=== PATIENT | female | born 1990 | race Caucasian/White ===

== ENCOUNTER → 2019-12-19 16:04 | Outpatient (BNVA) | payer OTHER, SELFPAY | PROVIDERS: Family Provider Nurse Practitioner; PCP Nurse Practitioner; Visit Provider Nurse Practitioner | DX: E04.9 Nontoxic goiter, unspecified (principal) | CPT/HCPCS: 84439; 84443; 84481 ==

== ENCOUNTER 2020-01-03 12:16 | Outpatient (CLI) | payer OTHER, SELFPAY ==
--- NOTE | 2020-01-03 12:45 | US_ITS ---
WS: [id number] THYROID ULTRASOUND REASON FOR EXAM: enlarged thyroid TECHNIQUE: Grayscale and Doppler ultrasound examination of the thyroid gland. FINDINGS: RIGHT: Right thyroid gland measures 4.9 cm x 1.8 cm x 1.8 cm. Right thyroid volume equals 8.3 ccm3. Heteroge neous echotexture with enlarged gland and increased vascularity. LEFT: Left thyroid gland measures 4.5 cm x 1.8 cm x 1.6 cm. Left thyroid volume equals 6.6 ccm3. Heterogene ous gland highly vascular and enlarged. Superior to the left lobe of the thyroid is a 2.43 x 0.29 x 0 .68 enlarged lymph node. Thyroid isthmus: 0.2 mm. US/US thyroid [id number] IMPRESSION: Enlarged thyroid gland suggesting hyperthyroidism. There appears to be a lymph node enlarged and superior to the left lobe.
== END 2020-01-03 12:17 | disposition home or self-care (01) ==
PROVIDERS: PCP Nurse Practitioner; Visit Provider Nurse Practitioner
DX: E04.9 Nontoxic goiter, unspecified (principal)
CPT/HCPCS: 76536

== ENCOUNTER 2020-01-04 11:21 | Outpatient (CLI) | payer OTHER, SELFPAY ==
[2020-01-08 06:53] LABS: Thyroglobulin AB 2 IU/mL (< or = 1)
== END 2020-01-04 11:22 | disposition home or self-care (01) ==
LOC: LAB 11:25
PROVIDERS: PCP Nurse Practitioner; Visit Provider Nurse Practitioner
DX: E04.9 Nontoxic goiter, unspecified (principal); E05.90 Thyrotoxicosis, unspecified without thyrotoxic crisis or storm
CPT/HCPCS: 36415; 83516; 84445; 86800

== ENCOUNTER 2020-03-07 13:12 | Outpatient (CLI) | payer OTHER, SELFPAY ==
[2020-03-07 14:05] LABS: Free T4 Free Thyroxine 1.01 ng/dL (0.82-1.77); Thyroid Stimulating Hormone 0.01 uIU/mL (0.27-4.20)
== END 2020-03-07 13:13 | disposition home or self-care (01) ==
LOC: LAB 13:16
PROVIDERS: PCP Nurse Practitioner; Visit Provider Nurse Practitioner
DX: E05.90 Thyrotoxicosis, unspecified without thyrotoxic crisis or storm (principal)
CPT/HCPCS: 36415; 84439; 84443; 84481

== ENCOUNTER 2020-07-02 18:30 | Outpatient (CLI) | payer OTHER, SELFPAY ==
[2020-07-04 09:18] LABS: T4 Total 9.5 mcg/dL (5.1-11.9)
== END 2020-07-02 18:31 | disposition home or self-care (01) ==
LOC: LAB 18:33
PROVIDERS: PCP Nurse Practitioner; Visit Provider Internal Medicine Endocrinology, Diabetes & Metabolism
DX: E05.90 Thyrotoxicosis, unspecified without thyrotoxic crisis or storm (principal)
CPT/HCPCS: 84436; 84443; 84481

== ENCOUNTER → 2021-01-06 08:07 | Outpatient (BNVA) | payer SELFPAY | PROVIDERS: PCP Nurse Practitioner; Visit Provider Dermatology | DX: Z01.89 Encounter for other specified special examinations (principal) ==

== ENCOUNTER → 2021-03-20 10:40 | Outpatient (BNVA) | payer OTHER, SELFPAY | PROVIDERS: PCP Nurse Practitioner; Visit Provider Nurse Practitioner | DX: R10.9 Unspecified abdominal pain (principal); Z20.822 Contact with and (suspected) exposure to COVID-19 | CPT/HCPCS: 74018; 80053; 81003; 85025; 87400; 87635 ==

== ENCOUNTER → 2022-03-05 09:05 | Outpatient (BNVA) | payer OTHER, SELFPAY | PROVIDERS: PCP Nurse Practitioner; Visit Provider Nurse Practitioner Women's Health | DX: R87.610 Atypical squamous cells of undetermined significance on cytologic smear of cervix (ASC-US) (principal) | CPT/HCPCS: 87624 ==

== ENCOUNTER → 2022-06-25 11:50 | Outpatient (BNVA) | payer OTHER, SELFPAY | PROVIDERS: PCP Nurse Practitioner; Visit Provider Nurse Practitioner | DX: Z13.6 Encounter for screening for cardiovascular disorders (principal) | CPT/HCPCS: 80053; 80061 ==

== ENCOUNTER 2023-08-26 08:35 | Outpatient (CLI) | payer OTHER, SELFPAY ==
--- NOTE | 2023-08-26 08:39 | MM_ITS ---
WS: [id number] SCREENING DIGITAL TOMOSYNTHESIS MAMMOGRAM WITH CAD HISTORY: Z12.31 - Encounter for screening mammogram for malignant ... COMPARISON: None available. Bilateral CC and MLO with tomosynthesis views submitted. Synthetic mammography reviewed. Computer aid ed detection analyzed. Breast composition: The breasts are heterogeneously dense, which may obscure small masses. No suspici ous masses, microcalcifications or architectural distortion. RIGHT breast is smaller than the LEFT br east which is developmental. No suspicious mass or calcification. IMPRESSION: MM/[place] [id number] BI-RADS: 2-Benign FOLLOW UP: 1 Year Follow-up
== END 2023-08-26 08:36 | disposition home or self-care (01) ==
LOC: RAD 08:36
PROVIDERS: PCP Nurse Practitioner; Visit Provider Nurse Practitioner Women's Health
DX: Z12.31 Encounter for screening mammogram for malignant neoplasm of breast (principal)
CPT/HCPCS: 77063; 77067